=== PATIENT | male | born 1995 | race Two or more races ===

== ENCOUNTER 2023-03-08 11:03 | Emergency (ER) | payer OTHER ==
[2023-03-08 11:10] VITALS: BMI 35.1
[2023-03-08 13:19] LABS: URINE APPEARANCE CLEAR; URINE BILIRUBIN NEGATIVE (NEGATIVE); URINE COLOR YELLOW; URINE GLUCOSE (UA) NEGATIVE (NEGATIVE); URINE KETONE NEGATIVE (NEGATIVE); URINE LEUK ESTERASE NEGATIVE (NEGATIVE); URINE NITRITE NEGATIVE (NEGATIVE); URINE PROTEIN NEGATIVE (NEGATIVE); URINE UROBILINOGEN 0.2 mg/dL (0.2-1.0)
[2023-03-08 14:54] VITALS: BP 142/85; PULSE 85; RESP 19; TEMP 97.9
== END 2023-03-08 14:52 | disposition home or self-care (01) ==
LOC: JER 11:03
DX: N50.3 Cyst of epididymis (principal)
CPT/HCPCS: 36415; 76870-TC; 81003; 87086; 87491; 87591; 99284-25